=== PATIENT | male | born 1960 | race African-American/Black ===

== ENCOUNTER 2023-09-05 12:57 | Inpatient (IN) | payer OTHER ==
[2023-09-05 13:47] VITALS: BMI 26.3
[2023-09-05] MEDS ORDERED: BENZONATATE 200 MG CAPSULE PO PRN (14:13)
[2023-09-05] MEDS ORDERED: BENZOCAINE/MENTHOL (CHLORASEPTIC ) LOZENGE MM PRN (14:13)
[2023-09-05] MEDS ORDERED: MAG HYDROX/AL HYDROX/SIMETH 30 ML UNIT-DOSE CUP PO PRN (14:13)
[2023-09-05] MEDS ORDERED: IBUPROFEN 400 MG TABLET (FP) PO PRN (14:13)
[2023-09-05] MEDS ORDERED: MAGNESIUM HYDROX 2400MG/30ML ORAL SUSPENSION 30 ML CUP PO PRN (14:13)
[2023-09-05] MEDS ORDERED: LOPERAMIDE HCL 2 MG CAPSULE PO PRN (14:13)
[2023-09-05] MEDS ORDERED: ACETAMINOPHEN 325 MG TABLET (FP) PO PRN (14:13)
[2023-09-05] MEDS ORDERED: IBUPROFEN 600 MG TABLET (FP) PO PRN (14:13)
[2023-09-05] MEDS ORDERED: POLYETHYLENE GLYCOL (HEALTHYLAX) 3350 17 GM PACKET PO PRN (14:13)
[2023-09-05] MEDS ORDERED: NICOTINE POLACRILEX 2 MG LOZENGE BC PRN (14:13)
[2023-09-05] MEDS ORDERED: guaiFENesin 600 MG TABLET.ER (FP) PO PRN (14:13)
[2023-09-05] MEDS: cloNIDine HCL 0.1 MG TABLET PO ONE (16:06)
[2023-09-05] MEDS: ASPIRIN COATED 81 MG TABLET.EC PO SCH (16:06)
[2023-09-05] MEDS: TUBERCULIN PPD 5 TU/0.1ML SYRINGE (IN PATIENT USE ONLY) ID ONE (17:50)
[2023-09-05] MEDS: THIAMINE 100 MG TABLET PO SCH (22:16)
[2023-09-05] MEDS: ATORVASTATIN CA 20 MG TABLET (FP) PO SCH (22:16)
[2023-09-05] MEDS: MELATONIN 5 MG TABLETS PO SCH (22:16)
[2023-09-05] MEDS: CARVEDILOL 3.125 MG TABLET (FP) PO SCH (22:16)
[2023-09-06] MEDS: FERROUS SO4 325 MG TABLET (FP) PO SCH (09:07)
[2023-09-06] MEDS: PRENATAL VITAMINS W/ FOLIC ACID TABLET (FP) PO SCH (09:07)
[2023-09-06] MEDS ORDERED: PANTOPRAZOLE 40 MG TABLET PO SCH (10:00)
[2023-09-06] MEDS ORDERED: SACUBITRIL/VALSARTAN 24 MG-26 MG TABLET PO SCH (10:00)
[2023-09-06] MEDS: PATIENT'S OWN MEDICATION (NON-FORMULARY) (Naproxen/Esomeprazole Mag [Naproxen-Esomepraz Dr PO SCH (10:42)
[2023-09-06 12:22] LABS: HEMATOCRIT 41.5 % (35.4-49); HEMOGLOBIN 13.7 GM/dL (11.7-16.9); MCH 28.5 pg (25.7-33.7); MEAN CELL VOLUME 86.3 fl (80-96); PLATELET COUNT 130 10^3/uL (134-434); RBC 4.81 M/mm3 (4.00-5.60); RDW 18.1 % (11.9-15.9); WHITE BLOOD COUNT 4.9 K/mm3 (4.0-10.0)
[2023-09-06 12:22] LABS: EPI CELLS 15 /uL (0-25.1); HYALINE CASTS 0 /uL (0-3.1); URINE APPEARANCE CLEAR; URINE BACTERIA 8 /uL (0-1359); URINE BILIRUBIN NEGATIVE (NEGATIVE); URINE COLOR YELLOW; URINE GLUCOSE (UA) NEGATIVE (NEGATIVE); URINE KETONE NEGATIVE (NEGATIVE); URINE LEUK ESTERASE NEGATIVE (NEGATIVE); URINE NITRITE NEGATIVE (NEGATIVE); URINE PROTEIN 1+ (NEGATIVE); URINE RBC 4 /uL (0-23.9); URINE UROBILINOGEN 0.2 mg/dL (0.2-1.0); URINE WBC 23 /uL (0-25.8)
[2023-09-06 12:25] LABS: POTASSIUM 4.5 mmol/L (3.5-5.1)
[2023-09-06 12:27] LABS: ALBUMIN 3.5 g/dl (3.4-5.0); BLOOD UREA NITROGEN 17.3 mg/dL (7-18); CALCIUM 8.9 mg/dL (8.5-10.1)
[2023-09-06 12:30] LABS: CREATININE 1.4 mg/dL (0.55-1.3)
[2023-09-06 12:32] LABS: BILIRUBIN,TOTAL 0.6 mg/dL (0.2-1); TOT PROT 6.4 g/dl (6.4-8.2)
[2023-09-06 13:20] VITALS: BP 143/73; PULSE 67; RESP 18; TEMP 97.2
[2023-09-06] MEDS: NICOTINE POLACRILEX 2 MG GUM BUC PRN (13:21)
== END 2023-09-06 14:25 | disposition home or self-care (01) | DRG 895 ==
LOC: YASAS 12:57 → Y3NR 14:39 → Y3E 09-06 13:13
PROVIDERS: ADMIT Allergy & Immunology; ATTEND Psychiatry & Neurology Pain Medicine
PROC: HZ42ZZZ Group Counseling for Substance Abuse Treatment, Cognitive-Behavioral (ICD-10-PCS; principal; 2023-09-05)
DX: F14.20 Cocaine dependence, uncomplicated (principal); F17.210 Nicotine dependence, cigarettes, uncomplicated; D64.9 Anemia, unspecified; E78.00 Pure hypercholesterolemia, unspecified; I11.0 Hypertensive heart disease with heart failure; I50.9 Heart failure, unspecified; K21.9 Gastro-esophageal reflux disease without esophagitis
CPT/HCPCS: 36415; 80053; 80305; 81003; 85027; 86780; 87811; 93005; 93010